=== PATIENT | male | born 1970 | race Caucasian/White ===

== ENCOUNTER 2018-02-27 04:13 | Observation (INO) | payer MEDICARE ==
[2018-02-27] MEDS ORDERED: Zofran 4 MG/2 ML VIAL IV ONE ×2 (04:39→07:10)
[2018-02-27] MEDS ORDERED: BABY ASPIRIN 81 MG CHEW PO ONE (04:42)
[2018-02-27] MEDS ORDERED: Zofran 4 MG/2 ML VIAL ONE (04:45)
[2018-02-27] MEDS ORDERED: BABY ASPIRIN 81 MG CHEW ONE (04:45)
[2018-02-27 04:47] LABS: BASOPHIL % 0.5 % (0.0-0.4); Basophil (Absolute #) 0.07 (0-0.4); Eosinophil % 0.9 % (0.00-5.0); Eosinophil (Absolute #) 0.13 (0-0.5); Granulocyte Absolute (ANC) 9.31 (1.4-6.9); Granulocytes % 63.3 % (36.0-66.0); Hematocrit 43.6 % (42-50); Hemoglobin 15.2 gm/dl (12.5-18.0); Lymphocyte (Absolute #) 4.25 (1.0-4.6); Mean Cell Volume 84.5 fl (78-100); Mean Corpuscular Hemoglobin 29.5 pg (26-32); Mean Corpuscular Hgb Concent. 34.9 g/dl (32-36); Mean Platelet Volume 9.7 fl (6-9.5); Monocyte (Absolute #) 0.92 (0.0-1.3); Monocytes % 6.3 % (0.0-12.0); Platelet Count 300 K/mm3 (150-450); Red Blood Count 5.16 M/mm3 (4.1-5.6); Red Cell Distribution Width 13.6 % (11.5-14.0); White Blood Count 14.7 K/mm3 (4.0-10.5)
--- NOTE | 2018-02-27 04:50 | ERPHSYRPT ---
- History of Present Illness Time Seen by Provider: 02/27/18 04:35 Historian: patient Exam Limitations: no limitations Patient Subjective Stated Complaint: nausea, vomiting, and chest pain starting at 2200 02/26/18 Triage Nursing Assessment: pt is alert and oriented. pt is ambulatory. pt reports nausea, vomiting, and chest pain beginning aroud 2200 on 02/26/18. pt states that he has vomited "20 times" since 2200. pt reports that he was rest when this began. pt bowel sounds present x4. pt reports that his chest pain is sharp and shoots around to the center of his back. pt is clammy. Physician History: This is a 47-year-old white male with history of chronic back pain, osteoarthritis chronic kidney disease, high blood pressure, GERD, hyperlipidemia Patient arrives with complaint of pain in the anterior chest substernal region radiating to back also pain in the epigastric region associated with nausea and vomiting states he's been vomiting multiple times since last night at 10:00 he denies any shortness of breath, he does state he had similar symptoms in the past was seen in [place] and given some solution to drink which improved his symptoms. Past medical history includes chronic back pain, osteoarthritis of the knee, chronic kidney disease, high blood pressure, GERD, hyperlipidemia, insomnia, depression, obesity, degenerative disc disease Past surgical history includes back surgery . Review of old chart shows the patient has seen a pain train controller for his chronic back pain. Inspect his reviewed patient is noted to have filled hydrocodone 7.5/325 #20 on January 12, 2018, Lyrica 25 mg #30 on 01/12/2018 Patient is also on Zolipedem last filled on February 21, 2018 Social history patient denies tobacco alcohol or illicit drug use Timing/Duration: yesterday (last night 10 PM) Activities at Onset: none Quality: sharpness Location: substernal (him), epigastric Chest Pain Radiation: back Severity of Pain-Max: moderate Severity of Pain-Current: moderate Modifying Factors: Improves With: nothing Associated Symptoms: nausea, vomiting, back pain, No palpitations, No heartburn , No abdominal pain, No shortness of breath, No cough, No hurts to breathe, No diaphoresis, No chills, No fever, No fatigue, No weakness, No swelling/lump in chest, No syncope, No rash, No headache, No dizziness, No edema Prior Chest Pain/Cardiac Workup: non-cardiac Nitro Today/Relief: no nitro taken today Aspirin Treatment Today: 81 mg x 4, provided by ED Allergies/Adverse Reactions: gabapentin [From Neurontin] Allergy (Verified 09/05/17 09:35) amitriptyline Adverse Reaction (Verified 02/27/18 04:34) Home Medications: Atorvastatin Calcium [Lipitor] 40 mg PO HS 12/27/16 [History] Lisinopril/Hydrochlorothiazide [Lisinopril-Hctz 10-12.5 mg Tab] 1 each PO DAILY 12/27/16 [History] Omeprazole 20 MG [Prilosec 20 mg] 20 mg PO DAILY 12/27/16 [History] Tizanidine HCl 4 mg [Zanaflex 4 MG] 4 mg PO TID 12/27/16 [History] Zolpidem Tartrate 10 mg PO HS 12/27/16 [History] Hx Tetanus, Diphtheria Vaccination/Date Given: Yes Hx Influenza Vaccination/Date Given: Yes Hx Pneumococcal Vaccination/Date Given: Yes Immunizations Up to Date: Yes - Review of Systems Constitutional: No Fever, No Chills Eyes: No Symptoms Ears, Nose, & Throat: No Symptoms Respiratory: No Cough, No Dyspnea Cardiac: Chest Pain, No Edema, No Palpitations, No Syncope, No Orthopnea, No PND Abdominal/Gastrointestinal: Abdominal Pain (epigastric pain), Nausea, Vomiting, No Diarrhea, No Constipation, No Hematemesis, No Hematochezia, No Melena, No Dysphagia, No Appetite Changes Genitourinary Symptoms: No Dysuria Musculoskeletal: No Back Pain, No Neck Pain Skin: No Rash Neurological: No Dizziness, No Focal Weakness, No Sensory Changes Psychological: No Symptoms Endocrine: No Symptoms All Other Systems: Reviewed and Negative - Past Medical History Pertinent Past Medical History: Yes Neurological History: No Pertinent History ENT History: No Pertinent History Cardiac History: No Pertinent History Respiratory History: No Pertinent History Endocrine Medical History: No Pertinent History Musculoskeletal History: Degenerative Disk Disease GI Medical History: GERD History: No Pertinent History Psycho-Social History: No Pertinent History, Depression, Other (insomnia) Male Reproductive Disorders: No Pertinent History - Past Surgical History Past Surgical History: Yes Neuro Surgical History: No Pertinent History Cardiac: No Pertinent History Respiratory: No Pertinent History Gastrointestinal: No Pertinent History Genitourinary: No Pertinent History Musculoskeletal: Orthopedic Surgery Male Surgical History: No Pertinent History Other Surgical History: disc surgery x2. - Social History Smoking Status: Former smoker Drug Use: none Patient Lives Alone: No - Nursing Vital Signs Nursing Vital Signs: Initial Vital Signs Temperature 98.6 F 02/27/18 04:13 Pulse Rate 72 02/27/18 04:13 Respiratory Rate 16 02/27/18 04:13 Blood Pressure 129/84 02/27/18 04:13 O2 Sat by Pulse Oximetry 99 02/27/18 04:13 Pain Scale Pain Intensity 9 - Physical Exam General Appearance: mild distress Eye Exam: PERRL/EOMI, eyes nml inspection Ears, Nose, Throat Exam: normal ENT inspection, moist mucous membranes Neck Exam: normal inspection, non-tender, supple, full range of motion Respiratory Exam: normal breath sounds, lungs clear, No respiratory distress Cardiovascular Exam: regular rate/rhythm, normal heart sounds Gastrointestinal/Abdomen Exam: soft, No tenderness, No mass Back Exam: normal inspection, No CVA tenderness, No vertebral tenderness Extremity Exam: normal inspection, normal range of motion Neurologic Exam: alert, oriented x 3, cooperative, transmitter operator II-XII nml as tested, normal mood/affect, sensation nml, No motor deficits Skin Exam: normal color, warm, dry SpO2 Interpretation: normal (99%) SpO2: 99 Oxygen Delivery: Room Air - Course Nursing assessment & vital signs reviewed: Yes EKG Interpreted by Me: RATE (72 bpm), Sinus Rhythm, NORMAL AXIS, Other (EKG: Sinus rhythm, 72 bpm, normal axis, no acute ST or T wave changes essentially normal EKG) - Radiology Exams Chest X-ray Interpretation: Interpreted by me (no acute disease process noted) - CT Exams Abdomen/Pelvis CT Interpretation: Tele-radiologist Report (CT abdomen and pelvis without contrast: impression: 1. Hiatal hernia. Thickening of the wall of the esophagus raising possibility of esophagitis. 2. The gallbladder is distended. No gallbladder wall thickening. no pericholecystic fluid collection. Patient's symptoms are suggestive. Suggest ultrasound correlation. 3. Colonic diverticulosis without evidence of acute diverticulitis.) Ordered Tests: Active Orders 24 hr Category Date Time Status EKG-ER Only STAT Care 02/27/18 04:39 Active IV Insertion STAT Care 02/27/18 04:39 Active ABDOMEN AND PELVIS W/0 CONTRAS [CT] Stat Exams 02/27/18 05:39 Taken CHEST 1 VIEW (PORTABLE) Stat Exams 02/27/18 04:40 Taken AMYLASE Stat Lab 02/27/18 04:44 Completed CBC W DIFF Stat Lab 02/27/18 04:44 Completed CMP Stat Lab 02/27/18 04:44 Completed LIPASE Stat Lab 02/27/18 04:44 Completed TROPONIN Q3H Lab 02/27/18 04:44 Completed TROPONIN Q3H Lab 02/27/18 07:45 Ordered TROPONIN Q3H Lab 02/27/18 10:45 Ordered TROPONIN Q3H Lab 02/27/18 13:45 Ordered TROPONIN Q3H Lab 02/27/18 16:45 Ordered Urine Triage Profile Stat Lab 02/27/18 06:00 Completed Medication Summary Discontinued Medications Generic Name Dose Route Start Last Admin Trade Name Freq PRN Reason Stop Dose Admin Al Hydrox/Mg Hydrox/Simethicone Confirm 02/27/18 05:43 Maalox Es 30 Ml Unit Dose Administered 02/27/18 05:44 Dose 30 ml .ROUTE .STK-MED ONE Aspirin 324 mg 02/27/18 04:42 02/27/18 04:48 Baby Aspirin 81 Mg Chew PO 02/27/18 04:43 324 mg STAT ONE Administration Aspirin Confirm 02/27/18 04:45 Baby Aspirin 81 Mg Chew Administered 02/27/18 04:46 Dose 324 mg .ROUTE .STK-MED ONE Sodium Chloride 1,000 mls @ 999 mls/hr 02/27/18 05:16 02/27/18 05:19 Sodium Chloride 0.9% 1000 Ml IV 02/27/18 06:16 999 mls/hr .Q1H1M STA Administration Sodium Chloride Confirm 02/27/18 05:17 Sodium Chloride 0.9% 1000 Ml Administered 02/27/18 05:18 Dose 1,000 mls @ ud .ROUTE .STK-MED ONE Lidocaine HCl Confirm 02/27/18 05:43 Xylocaine Hcl Viscous * Administered 02/27/18 05:44 Dose 15 ml .ROUTE .STK-MED ONE Magnesium Hydroxide 45 ml 02/27/18 05:38 02/27/18 05:47 Gi Cocktail 45 Ml (Maalox/Lidocaine) PO 02/27/18 05:39 45 ml STAT ONE Administration Morphine Sulfate 4 mg 02/27/18 05:12 02/27/18 05:19 Morphine Sulfate 4 Mg Inj IV 02/27/18 05:13 4 mg STAT ONE Administration Morphine Sulfate Confirm 02/27/18 05:14 Morphine Sulfate 4 Mg Inj Administered 02/27/18 05:15 Dose 4 mg .ROUTE .STK-MED ONE Ondansetron HCl 4 mg 02/27/18 04:39 02/27/18 04:47 Zofran 4 Mg/2 Ml Vial IV 02/27/18 04:40 4 mg STAT ONE Administration Ondansetron HCl Confirm 02/27/18 04:45 Zofran 4 Mg/2 Ml Vial Administered 02/27/18 04:46 Dose 4 mg .ROUTE .STK-MED ONE Promethazine HCl 12.5 mg 02/27/18 05:12 02/27/18 05:19 Phenergan 25 Mg Inj IV 02/27/18 05:13 12.5 mg STAT ONE Administration Promethazine HCl Confirm 02/27/18 05:14 Phenergan 25 Mg Inj Administered 02/27/18 05:15 Dose 25 mg .ROUTE .STK-MED ONE Lab/Rad Data: Laboratory Result Diagrams 02/27/18 04:44 02/27/18 04:44 Laboratory Results 02/27/18 02/27/18 02/27/18 Range/Units 06:00 04:44 04:44 WBC (4.0-10.5) K/mm3 RBC (4.1-5.6) M/mm3 Hgb (12.5-18.0) gm/dl Hct (42-50) % MCV (78-100) fl MCH (26-32) pg MCHC (32-36) g/dl RDW (11.5-14.0) % Plt Count (150-450) K/mm3 MPV (6-9.5) fl Gran % (36.0-66.0) % Eos # (Auto) (0-0.5) Absolute Lymphs (auto) (1.0-4.6) Absolute Monos (auto) (0.0-1.3) Lymphocytes % (24.0-44.0) % Monocytes % (0.0-12.0) % Eosinophils % (0.00-5.0) % Basophils % (0.0-0.4) % Absolute Granulocytes (1.4-6.9) Basophils # (0-0.4) Sodium 145 (137-145) mmol/L Potassium 3.6 (3.5-5.1) mmol/L Chloride 103 (98-107) mmol/L Carbon Dioxide 26 (22-30) mmol/L Anion Gap 19.2 H (5-15) MEQ/L BUN 18 (9-20) mg/dL Creatinine 1.10 (0.66-1.25) mg/dL Estimated GFR > 60.0 ML/MIN Glucose 155 H (74-106) mg/dL Calcium 9.8 (8.4-10.2) mg/dL Total Bilirubin 0.60 (0.2-1.3) mg/dL AST 20 (17-59) U/L ALT 21 (0-50) U/L Alkaline Phosphatase 110 (38-126) U/L Troponin I < 0.012 (0.000-0.034) ng/mL Serum Total Protein 8.0 (6.3-8.2) g/dL Albumin 4.7 (3.5-5.0) g/dL Amylase 124 H (30-110) U/L Lipase 160 (23-300) U/L Urine Opiates Level NEGATIVE (NEGATIVE) Ur Methadone NEGATIVE (NEGATIVE) Urine Barbiturates NEGATIVE (NEGATIVE) Ur Phencyclidine (PCP) NEGATIVE (NEGATIVE) Urine Amphetamine NEGATIVE (NEGATIVE) U Benzodiazepine Level NEGATIVE (NEGATIVE) Urine Cocaine NEGATIVE (NEGATIVE) Urine Marijuana (THC) NEGATIVE (NEGATIVE) 02/27/18 Range/Units 04:44 WBC 14.7 H (4.0-10.5) K/mm3 RBC 5.16 (4.1-5.6) M/mm3 Hgb 15.2 (12.5-18.0) gm/dl Hct 43.6 (42-50) % MCV 84.5 (78-100) fl MCH 29.5 (26-32) pg MCHC 34.9 (32-36) g/dl RDW 13.6 (11.5-14.0) % Plt Count 300 (150-450) K/mm3 MPV 9.7 H (6-9.5) fl Gran % 63.3 (36.0-66.0) % Eos # (Auto) 0.13 (0-0.5) Absolute Lymphs (auto) 4.25 (1.0-4.6) Absolute Monos (auto) 0.92 (0.0-1.3) Lymphocytes % 29.0 (24.0-44.0) % Monocytes % 6.3 (0.0-12.0) % Eosinophils % 0.9 (0.00-5.0) % Basophils % 0.5 (0.0-0.4) % Absolute Granulocytes 9.31 H (1.4-6.9) Basophils # 0.07 (0-0.4) Sodium (137-145) mmol/L Potassium (3.5-5.1) mmol/L Chloride (98-107) mmol/L Carbon Dioxide (22-30) mmol/L Anion Gap (5-15) MEQ/L BUN (9-20) mg/dL Creatinine (0.66-1.25) mg/dL Estimated GFR ML/MIN Glucose (74-106) mg/dL Calcium (8.4-10.2) mg/dL Total Bilirubin (0.2-1.3) mg/dL AST (17-59) U/L ALT (0-50) U/L Alkaline Phosphatase (38-126) U/L Troponin I (0.000-0.034) ng/mL Serum Total Protein (6.3-8.2) g/dL Albumin (3.5-5.0) g/dL Amylase (30-110) U/L Lipase (23-300) U/L Urine Opiates Level (NEGATIVE) Ur Methadone (NEGATIVE) Urine Barbiturates (NEGATIVE) Ur Phencyclidine (PCP) (NEGATIVE) Urine Amphetamine (NEGATIVE) U Benzodiazepine Level (NEGATIVE) Urine Cocaine (NEGATIVE) Urine Marijuana (THC) (NEGATIVE) - Progress Progress: improved Air Movement: fair Progress Note: 02/27/18 06:41 Patient continues to complain of pain in the substernal and epigastric region sharp in character. Patient's EKG normal sinus rhythm 72 bpm normal axis no acute ST or T wave changes, chest x-ray is unremarkable no acute disease process noted CT of the chest impression 1 hiatal hernia thickening of the wall esophagus raises possibility of esophagitis. 2. The gallbladder is distended. No gallbladder wall thickening, no pericholcystic fluid collection. The patient's symptoms are suggestive of acute cholecystitis 3. Colonic diverticulosis without evidence of acute diverticulitis Patient's labs remarkable for elevated white count of 14.7 hemoglobin and hematocrit are 15.2 and 43.6 chemistry glucose 155 amylase 124 slightly elevated lipase is normal anion gap 19.2 remainder essentially normal patient has been given IV morphine, aspirin by mouth, GI cocktail, Zofran, Phenergan still complains of sharp pain in the anterior sternal area. Case is discussed with Dr. Lopez. Will place patient on observation will order a gallbladder ultrasound. Will continue telemetry with serial troponins. Will give patient morphine and Zofran for pain and continue IV fluids. Will have patient nothing by mouth for now. Impression 1 substernal chest pain. 2. Epigastric pain. 3. Rule out cholecystitis. 4 rule out esophagitis. , - Departure Time of Disposition: 06:44 Departure Disposition: Observation Clinical Impression: Substernal chest pain, Epigastric pain, rule out esophagitis, rule out cholecystitis Vomiting Qualifiers: Vomiting type: unspecified Vomiting Intractability: unspecified Nausea presence : with nausea Qualified Code(s): R11.2 - Nausea with vomiting, unspecified Condition: Fair Critical Care Time: No Referrals: MASON LOPEZ [Primary Care Provider] -
[2018-02-27 04:58] LABS: ALBUMIN 4.7 g/dL (3.5-5.0); ALKALINE PHOSPHATASE 110 U/L (38-126); AMYLASE 124 U/L (30-110); ANION GAP 19.2 MEQ/L (5-15); BLOOD UREA NITROGEN 18 mg/dL (9-20); CHLORIDE 103 mmol/L (98-107); Calcium 9.8 mg/dL (8.4-10.2); Carbon Dioxide 26 mmol/L (22-30); Glucose 155 mg/dL (74-106); LIPASE 160 U/L (23-300); Potassium 3.6 mmol/L (3.5-5.1); SGOT/AST 20 U/L (17-59); SGPT/ALT 21 U/L (0-50); SODIUM 145 mmol/L (137-145)
[2018-02-27] MEDS ORDERED: MORPHINE SULFATE 4 MG INJ IV ONE (05:12)
[2018-02-27] MEDS ORDERED: Phenergan 25 MG INJ IV ONE (05:12)
[2018-02-27] MEDS ORDERED: Phenergan 25 MG INJ ONE (05:14)
[2018-02-27] MEDS ORDERED: MORPHINE SULFATE 4 MG INJ ONE (05:14)
[2018-02-27] MEDS ORDERED: Sodium Chloride 0.9% 1000 ML 1,000 ML IV STA (05:16)
[2018-02-27] MEDS ORDERED: Sodium Chloride 0.9% 1000 ML 1,000 ML ONE (05:17)
[2018-02-27] MEDS ORDERED: GI COCKTAIL 45 ML (Maalox/Lidocaine) PO ONE (05:38)
[2018-02-27] MEDS ORDERED: MAALOX ES 30 ML UNIT DOSE ONE (05:43)
[2018-02-27] MEDS ORDERED: XYLOCAINE HCl Viscous ONE (05:43)
[2018-02-27 06:26] LABS: Amphetamine,Urine NEGATIVE (NEGATIVE); Barbiturate,Urine NEGATIVE (NEGATIVE); Benzodiazepine,Urine NEGATIVE (NEGATIVE); Cocaine,Urine NEGATIVE (NEGATIVE); Methadone,Urine NEGATIVE (NEGATIVE); Opiate,Urine NEGATIVE (NEGATIVE); PCP,Urine NEGATIVE (NEGATIVE); THC,Urine NEGATIVE (NEGATIVE)
[2018-02-27] MEDS ORDERED: Zemuron 100 MG/10 ML IV ONE (07:10)
[2018-02-27] MEDS ORDERED: BRIDION 200MG/2ML IV ONE (07:10)
[2018-02-27] MEDS ORDERED: DILAUDID 2 MG INJECTION IV ONE (07:10)
[2018-02-27] MEDS ORDERED: SUBLIMAZE 250 MCG/5 ML IV ONE (07:10)
[2018-02-27] MEDS ORDERED: Versed 2 MG/2 ML Injection IV ONE (07:10)
[2018-02-27] MEDS ORDERED: Quelicin Fliptop 200 MG/10 ML IV ONE (07:10)
[2018-02-27] MEDS ORDERED: DIPRIVAN 200 MG/20 ML IV ONE (07:10)
[2018-02-27] MEDS ORDERED: Zofran 4 MG/2 ML VIAL IV PRN (07:30)
[2018-02-27] MEDS: Sodium Chloride 0.9% 1000 ML 1,000 ML IV SCH ×2 (08:30→22:19)
[2018-02-27] MEDS: PROTONIX 40 MG IV IV SCH (08:30)
--- NOTE | 2018-02-27 08:32 | XRAY ---
Indication: Epigastric/chest pain. Nausea and vomiting. History reflux. Multiple contiguous axial images obtained through the abdomen and pelvis without contrast as ordered. Comparison: None Lung bases demonstrates minimal bibasilar dependent atelectasis. No infiltrate or effusion. Heart is not enlarged. Small hiatal hernia. Noncontrasted stomach and bowel loops appear nonobstructed. Normal appendix. Mild scattered descending and sigmoid colonic diverticulosis. No free fluid/air. Anatomic variant for horseshoe kidney. Mild diffuse fatty liver. Gallbladder mildly distended without gallstones or abnormal biliary distention. Remaining liver, gallbladder, pancreas, spleen, adrenal glands, kidneys, ureters, and bladder appear unremarkable for noncontrast exam. Minimal aortoiliac calcifications without AAA. Osseous structures intact with mild degenerative spondylosis throughout the spine. Previous L4-L5 fusion surgery with intact posterior spinal hardware and a vertebral spacer. No ventral or inguinal hernias. Impression: 1. Small hiatal hernia, fatty liver, and colonic diverticulosis. 2. Mildly distended gallbladder. Gallbladder sonogram may yield further information if clinically warranted. 3. No acute intra-abdominal/pelvic abnormalities on this noncontrast exam. Comment: Preliminary interpretation was made by [facility]. No discrepancy. CT DI 23.68
--- NOTE | 2018-02-27 08:35 | XRAY ---
Indication: Chest pain. Comparison: None Portable chest demonstrates normal heart and lungs. Bony thorax intact with mild degenerative changes. Impression: Nonacute chest.
--- NOTE | 2018-02-27 09:22 | PCM.HP ---
History of Present Illness - Chief Complaint Chief Complaint: substernal chest pain History of Present Illness: is a 47 year old male who reports to the ER today with acute onset of epigastric and substernal chest pain, sharp and stabbing pain with nausea. no shortness of breath, no palpitations. no diaphoresis. - Review of Systems Constitutional: No Fever, No Chills Respiratory: No Cough, No Short Of Breath Cardiac: No Chest Pain, No Edema, No Syncope Abdominal/Gastrointestinal: Abdominal Pain, Nausea, No Vomiting, No Diarrhea, No Constipation Genitourinary Symptoms: No Dysuria Skin: No Rash All Other Systems: Reviewed and Negative Medications & Allergies Home Medications: Home Medication List Atorvastatin Calcium [Lipitor] 40 mg PO HS 12/27/16 [History Confirmed 02/27/18] Lisinopril/Hydrochlorothiazide [Lisinopril-Hctz 10-12.5 mg Tab] 1 each PO DAILY 12/27/16 [History Confirmed 02/27/18] Omeprazole 20 MG [Prilosec 20 mg] 20 mg PO DAILY 12/27/16 [History Confirmed ] Tizanidine HCl 4 mg [Zanaflex 4 MG] 4 mg PO TID 12/27/16 [History Confirmed 02/27/18] Zolpidem Tartrate 10 mg PO HS 12/27/16 [History Confirmed 02/27/18] Allergies/Adverse Reactions: Allergies Allergy/AdvReac Type Severity Reaction Status Date / Time gabapentin [From Neurontin] Allergy Verified 09/05/17 09:35 amitriptyline AdvReac Verified 02/27/18 04:34 - Past Medical History Past Medical History: Yes Neurological History: No Pertinent History ENT History: No Pertinent History Cardiac History: No Pertinent History Respiratory History: No Pertinent History Endocrine Medical History: No Pertinent History Musculoskelatal History: Degenerative Disk Disease GI Medical History: GERD History: No Pertinent History Pyscho-Social History: No Pertinent History, Depression, Other (insomnia) Male Reproductive Disorders: No Pertinent History - Past Surgical History Past Surgical History: Yes Neuro Surgical History: No Pertinent History Cardiac History: No Pertinent History Respiratory Surgery: No Pertinent History GI Surgical History: No Pertinent History Genitourinary Surgical Hx: No Pertinent History Musculskeletal Surgical Hx: Orthopedic Surgery Male Surgical History: No Pertinent History Other Surgical History: disc surgery x2. - Social History Smoking Status: Former smoker Alcohol: None Drug Use: none - Physical Exam Vital Signs: Vital Signs - 24 hr Temp Pulse Resp BP Pulse Ox 02/27/18 07:19 98.1 F 74 135/79 02/27/18 07:17 98.1 F 74 18 135/79 99 02/27/18 06:45 99 02/27/18 06:40 72 16 99 02/27/18 05:50 69 16 134/87 99 02/27/18 05:03 65 18 142/81 96 02/27/18 04:13 98.6 F 72 16 129/84 99 General Appearance: no apparent distress, alert Eye Exam: PERRL/EOMI, eyes nml inspection Ears, Nose, Throat Exam: normal ENT inspection, TMs normal, pharynx normal, moist mucous membranes Neck Exam: normal inspection, non-tender, supple, full range of motion Respiratory Exam: normal breath sounds, lungs clear, No respiratory distress Cardiovascular Exam: regular rate/rhythm, normal heart sounds, normal peripheral pulses Gastrointestinal/Abdomen Exam: tenderness (tender epigastrium), No distention, No mass, No guarding Back Exam: normal inspection, normal range of motion, No CVA tenderness, No vertebral tenderness Extremity Exam: normal inspection, normal range of motion, pelvis stable Skin Exam: normal color, warm, dry, No rash Assessment/Plan (1) Epigastric pain Current Visit: Yes Status: Acute Assessment & Plan: gallbladder distended on ct scan, gallbladder u/s is pending at this time. Code(s): R10.13 - EPIGASTRIC PAIN (2) Substernal chest pain Current Visit: Yes Status: Acute Assessment & Plan: EKG shows nothing acute, troponin negative. appears to be GI related Code(s): R07.2 - PRECORDIAL PAIN (3) Vomiting Current Visit: Yes Status: Acute Qualifiers: Vomiting type: unspecified Vomiting Intractability: unspecified Nausea presence: with nausea Qualified Code(s): R11.2 - Nausea with vomiting, unspecified Code(s): R11.10 - VOMITING, UNSPECIFIED
[2018-02-27 10:10] LABS: AMYLASE 107 U/L (30-110); LIPASE 117 U/L (23-300)
--- NOTE | 2018-02-27 10:11 | XRAY ---
Indication: Right upper quadrant pain. Two-dimensional gallbladder sonogram performed pre- Comparison: None. Gallbladder is normally distended with a few gallstones. Specifically there is a 2 cm stone in the neck of the gallbladder. No gallbladder wall thickening or pericholecystic fluid. Common bile duct measures 3.8 mm. No intrahepatic biliary distention. Fatty echogenic liver without focal solid/cystic mass or ascites. Remaining visuals portions of the pancreas and right kidney appear sonographically normal. Right kidney measures 13.6 cm in length. Impression: 1. Cholelithiasis without cholecystitis or biliary distention. 2. Fatty liver.
[2018-02-27] MEDS: MORPHINE SULFATE 4 MG INJ IV PRN ×2 (14:58→23:52)
[2018-02-27] MEDS: Zestril 10 MG PO SCH (14:58)
[2018-02-27] MEDS: hydroDIURIL 25 MG PO SCH (14:58)
[2018-02-27] MEDS ORDERED: MEFOXIN 2 GM PREMIX** 2 GM/50 ML ML IV SCH (17:00)
[2018-02-27] MEDS ORDERED: Lactated Ringers 1,000 ML IV SCH (17:00)
[2018-02-27] MEDS ORDERED: Sensorcaine 0.25% 10 ML ONE (17:45)
[2018-02-27] MEDS ORDERED: Lactated Ringers 1,000 ML IV ONE (17:46)
[2018-02-27] MEDS ORDERED: TYLENOL 325 MG PO PRN (21:05)
[2018-02-27] MEDS ORDERED: LIPITOR 40MG PO SCH (22:00)
[2018-02-27] MEDS ORDERED: Ambien 10 MG PO PRN (22:00)
[2018-02-28] MEDS: MEFOXIN 1 Gm/ D5W 50 Ml** 1 G/50 ML ML IV SCH ×2 (00:02→06:35)
[2018-02-28] MEDS: NORCO 5/325 MG PO PRN ×3 (03:59→12:40)
[2018-02-28] MEDS: Sodium Chloride 0.9% 1000 ML 1,000 ML IV SCH (04:00)
[2018-02-28 06:21] LABS: BASOPHIL % 0.2 % (0.0-0.4); Basophil (Absolute #) 0.02 (0-0.4); Eosinophil % 0.2 % (0.00-5.0); Eosinophil (Absolute #) 0.02 (0-0.5); Granulocyte Absolute (ANC) 7.71 (1.4-6.9); Granulocytes % 69.4 % (36.0-66.0); Hematocrit 37.8 % (42-50); Hemoglobin 12.7 gm/dl (12.5-18.0); Lymphocyte (Absolute #) 2.28 (1.0-4.6); Lymphocytes % 20.5 % (24.0-44.0); Mean Cell Volume 87.3 fl (78-100); Mean Corpuscular Hemoglobin 29.3 pg (26-32); Mean Corpuscular Hgb Concent. 33.6 g/dl (32-36); Mean Platelet Volume 9.6 fl (6-9.5); Monocyte (Absolute #) 1.08 (0.0-1.3); Monocytes % 9.7 % (0.0-12.0); Platelet Count 221 K/mm3 (150-450); Red Blood Count 4.33 M/mm3 (4.1-5.6); Red Cell Distribution Width 13.9 % (11.5-14.0); White Blood Count 11.1 K/mm3 (4.0-10.5)
[2018-02-28 06:29] LABS: ALKALINE PHOSPHATASE 81 U/L (38-126); AMYLASE 57 U/L (30-110); ANION GAP 11.6 MEQ/L (5-15); BLOOD UREA NITROGEN 13 mg/dL (9-20); CHLORIDE 102 mmol/L (98-107); Calcium 9.1 mg/dL (8.4-10.2); Carbon Dioxide 29 mmol/L (22-30); Creatinine 1 0.87 mg/dL (0.66-1.25); Glucose 108 mg/dL (74-106); LIPASE 46 U/L (23-300); Potassium 3.7 mmol/L (3.5-5.1); SGOT/AST 38 U/L (17-59); SGPT/ALT 33 U/L (0-50); SODIUM 138 mmol/L (137-145); Total Protein 6.9 g/dL (6.3-8.2)
[2018-02-28] MEDS: MORPHINE SULFATE 4 MG INJ IV PRN (06:36)
--- NOTE | 2018-02-28 07:45 | CONS ---
CONSULT DATE: 02/27/2018 REASON FOR CONSULT: Abdominal pain. HISTORY: This 47 year-old male presents with acute onset of abdominal pain that started at 2200 hours last night. The pain has been very severe and constant since that time. The pain is in his epigastrium and right upper quadrant. He went to the emergency department with epigastric and somewhat lower chest pain. He had evaluation for chest pain with negative troponins and negative EKG. Since that time he has also had CT scan which showed a small hiatal hernia, fatty liver and chronic diverticulosis and a mildly distended gallbladder. He then had a right upper quadrant ultrasound which showed cholelithiasis with common duct measuring 3.8 mm, a 2 cm stone in the neck of the gallbladder and no wall thickening or pericholecystic fluid. Lipase was normal at 117. BMP was grossly within normal limits except for elevated glucose at 155 and anion gap of 19.2. White blood cell was 14.7, hemoglobin 15.2, PLT 300,000. Total bilirubin 0.6, alkaline phosphatase 110. ALT 21 and AST 20. REVIEW OF SYSTEMS: Twelve systems reviewed and negative except as noted in the history of present illness. The patient also has nausea with these episodes. Nausea and vomiting positive. PAST MEDICAL HISTORY: Hypertension, hyperlipidemia, fatty liver. PAST SURGICAL HISTORY: Back surgery x2. MEDICATIONS: Statin, blood pressure medicine, Ambien, muscle relaxer. He received aspirin in the emergency room. Other medications reviewed, see the MAR. ALLERGIES: GABAPENTIN, AMITRIPTYLINE. SOCIAL HISTORY: No tobacco. No alcohol. FAMILY HISTORY: Dad with chronic obstructive pulmonary disease. PHYSICAL EXAMINATION: GENERAL: No acute distress. HEENT: Sclera nonicteric. Extraocular movements intact. NECK: Supple. No JVD. CHEST: Nonlabored. No crepitus. ABDOMEN: Soft, nondistended, tender to palpation in the right upper quadrant and epigastrium. No diffuse peritonitis. EXTREMITIES: No peripheral edema. SKIN: Warm, dry and intact. NEURO: Awake, alert and oriented, appropriate mood and affect. ASSESSMENT: Acute calculus cholecystitis. PLAN: Laparoscopic possible open cholecystectomy.
--- NOTE | 2018-02-28 08:04 | OP ---
SURGERY DATE/TIME: 02/27/20181829 PREOPERATIVE DIAGNOSIS: Acute calculus cholecystitis. POSTOPERATIVE DIAGNOSIS: Acute calculus gangrenous cholecystitis. PROCEDURE: Laparoscopic cholecystectomy. SURGEON: Harris Jason M.D. ANESTHESIA: General. SPECIMEN: 1) Gallbladder. 2) Gallbladder bile for culture. ESTIMATED BLOOD LOSS: 20 cc. COMPLICATIONS: None. FINDINGS: Gangrenous gallbladder. INDICATION: This 46 year-old male presents with severe epigastric and right upper quadrant pain that radiated to his chest. He had a negative cardiac evaluation. He was found to have gallstones on ultrasound and an elevated white blood cell count. With his persistent pain and elevated white count the patient was concerning for acute cholecystitis. After discussing the risks and benefits of surgery the patient wished to proceed. DESCRIPTION OF PROCEDURE: The patient was brought to the OR. He is placed in supine on OR table. He is placed under general endotracheal anesthesia. The abdomen was prepped and draped in sterile fashion. A Veress needle was used to obtain peritoneal left upper quadrant. After the peritoneum was obtained a 5 mm optical trocar was then placed in the left upper quadrant. Under direct visualization the abdomen was entered. The area underneath was inspected and there did not appear to be any other injury. An 11 mm trocar was placed in the superior aspect of the umbilicus under direct visualization. A 530 scope was then switched out and used for the remainder of the case. Two right upper quadrant 5 mm trocars were placed under direct visualization. The gallbladder was very tense and appeared gangrenous. It was unable to be grasped. The gallbladder was aspirated with 60 cc syringe and murky bile was drawn out and this sent for culture. The gallbladder was then grasped at the fundus and retracted superior laterally. The infundibulum was retracted inferiorly laterally. The triangle of Calot was carefully dissected out with hook electrocautery and suction dissector until only the cystic duct and cystic artery remain. The area was fairly edematous. The cystic duct and cystic artery were doubly clipped and transected with 5 mm clip light rail signal technician. The gallbladder was then taken off the gallbladder bed with electrocautery. The liver bed was slightly oozing. The patient did receive a full dose of aspirin when he went to the emergency room with the concern for chest pain. The liver bed was controlled with electrocautery and appeared hemostatic. The gallbladder is removed from the umbilical trocar site with a bag. The umbilical trocar site was closed with 0 Vicryl figure-of-8 suture with a suture passer under direct visualization. The right upper quadrant was copiously irrigated and suctioned dry. It appeared hemostatic with his recent aspirin use a small piece of Surgicel was placed in the liver bed prophylactically. There is no blood or bile in the right upper quadrant at this time. The remaining trocars were removed under direct visualization. The abdomen was desufflated. The skin was closed with 4-0 Vicryl suture. 0.25% Marcaine was injected in the wound. The wounds were then covered with Steri-Strips and sterile dressings. The patient was recovered and taken to PACU in stable condition.
[2018-02-28] MEDS: hydroDIURIL 25 MG PO SCH (08:53)
[2018-02-28] MEDS: Zestril 10 MG PO SCH (08:53)
[2018-02-28] MEDS: PROTONIX 40 MG IV IV SCH (08:53)
[2018-02-28] MEDS ORDERED: NON-FORMULARY ITEM (Lisinopril/Hydrochlorothiazide [Lisinopril-Hctz 10-12.5 Mg Tab] 1 EACH PO SCH (10:00)
[2018-02-28 12:13] VITALS: BP 129/72; PULSE 84; O2SAT 96
== END 2018-02-28 12:40 | disposition home or self-care (01) ==
LOC: ED 04:13 → MED SURG 07:09
PROVIDERS: ADMIT Family Medicine; ATTEND Family Medicine
DX: R10.13 Epigastric pain (principal); R07.2 Precordial pain; R11.2 Nausea with vomiting, unspecified; I10 Essential (primary) hypertension; K80.00 Calculus of gallbladder with acute cholecystitis without obstruction; E78.5 Hyperlipidemia, unspecified; K76.0 Fatty (change of) liver, not elsewhere classified; Z79.899 Other long term (current) drug therapy
CPT/HCPCS: 36000; 36415; 71045; 74176; 76705; 80053; 80307; 82150; 83690; 84484; 85025; 87070; 87205; 88304; 93005; 93268; 96365; 96374; 99285; J0330; J0694; J1170; J2250; J2270; J2405; J2550; J2704; J3010; A9270-GY; G0378